=== PATIENT | male | born 1935 | race Caucasian/White ===

== ENCOUNTER 2022-05-07 06:59 | Inpatient (IN) | payer OTHER ==
[2022-05-05 10:40] VITALS: BP 105/59
[2022-05-05 14:11] LABS: BASOPHILS % (AUTO) 0.6 % (0.0-5.0); EOSINOPHILS % (AUTO) 1.3 % (0.0-8.0); HEMATOCRIT 41.6 % (42-54); LYMPHOCYTES % (AUTO) 26.7 % (21.0-51.0); MEAN CORPUSCULAR HEMOGLOBIN 30.6 pg (27.0-33.0); MEAN CORPUSCULAR HGB CONC 33.7 g/dL (32.0-36.0); MEAN CORPUSCULAR VOLUME 90.8 fL (79-99); MONOCYTES % (AUTO) 6.9 % (3.0-13.0); NEUTROPHILS % (AUTO) 64.3 % (40.0-77.0); PLATELET COUNT (AUTO) 201 K/uL (130-400); RED BLOOD CELL COUNT(AUTO) 4.58 MIL/uL (4.50-6.20); WHITE BLOOD COUNT (AUTO) 8.3 K/uL (4.8-10.8)
[2022-05-05 14:13] LABS: APPEARANCE,URINE CLEAR (CLEAR); BILIRUBIN,URINE NEGATIVE (NEGATIVE); COLOR,URINE YELLOW (YELLOW); GLUCOSE, URINE (UA) NEGATIVE (NEGATIVE); KETONES,URINE NEGATIVE (NEGATIVE); LEUKOCYTE ESTERASE ,URINE NEGATIVE (NEGATIVE); NITRATE,URINE NEGATIVE (NEGATIVE); OCCULT BLOOD,URINE NEGATIVE (NEGATIVE); PH,URINE 5.5 (5.0-8.0); PROTEIN,URINE NEGATIVE (NEGATIVE); UROBILINOGEN,URINE 0.2 mg/dL (0.2-1.0)
[2022-05-05 14:20] LABS: POTASSIUM 3.7 mmol/L (3.5-5.1)
[2022-05-05 14:23] LABS: INR 0.96 (0.85-1.15); PROTHROMBIN TIME 10.5 SEC (9.6-11.6)
[2022-05-05 14:24] LABS: PARTIAL THROMBOPLASTIN TIME 24.2 SEC (26.3-35.5)
[~2022-05-07] VITALS: Ht 193 cm; Wt 103.1 kg
[2022-05-07] VITALS (16 sets, daily range): BP systolic 121–151; BP diastolic 71–88
[~2022-05-07 06:59] MED LIST: 0.9% NACL 500ML IV.SOLN 500 ML IV SCH; ASPI-1443 PO; ATOR40TA71 PO; EZET10TA13 PO; GABA300C PO; ISOS30TA92 PO; LORA10TA7 PO; METO-408 PO; MULT-1367 PO
[2022-05-07] MEDS ORDERED: 0.9%NACL 1000ML 1,000 ML IV ONE (07:31)
[2022-05-07] MEDS ORDERED: IOHEXOL 350 MG/ML 100ML INFUS..BTL IV ONE (07:41)
[2022-05-07] MEDS ORDERED: NITROGLYCERIN 50MG VIAL ONE (07:41)
[2022-05-07] MEDS ORDERED: IOHEXOL-350 50ML VIAL IV ONE (07:41)
[2022-05-07] MEDS ORDERED: HEPARIN 10,000 UNIT/10ML (1,000 UNIT/ML) VIAL ONE (07:41)
[2022-05-07] MEDS ORDERED: MIDAZOLAM HCL 1 MG/ML 2ML VIAL ONE (07:42)
[2022-05-07] MEDS ORDERED: FENTANYL CITRATE PF 50 MCG/1 ML 2ML VIAL ONE (07:42)
[2022-05-07] MEDS ORDERED: LIDOCAINE HCL 400MG/20ML VIAL ONE ×2 (07:43→07:52)
[2022-05-07] MEDS ORDERED: DEXTROSE 50%-WATER 50 ML DISP.SYRIN IV PRN (10:00)
[2022-05-07] MEDS ORDERED: GLUCAGON 1MG KIT 1 MG ML IM PRN (10:00)
[2022-05-07] MEDS ORDERED: EZETIMIBE 10 MG TAB PO SCH (10:30)
[2022-05-07] MEDS ORDERED: ISOSORBIDE MONO 30MG SR TAB PO SCH (10:30)
[2022-05-07] MEDS ORDERED: MAG/ALUM/SIMETH 30 ML UDCUP PO PRN (11:00)
[2022-05-07] MEDS ORDERED: ACETAMINOPHEN 325 MG TAB PO PRN ×2 (11:00)
[2022-05-07] MEDS ORDERED: LACTULOSE 20 GM/30 ML UDCUP PO PRN (11:00)
[2022-05-07] MEDS ORDERED: ONDANSETRON 4MG INJ IV PRN (11:00)
[2022-05-07] MEDS ORDERED: GUAIFENESIN-DM 200/20 MG 10 ML PO PRN (11:00)
[2022-05-07] MEDS ORDERED: DiphenhydrAMINE HCL 50 MG/ML VIAL IV PRN (11:00)
[2022-05-07] MEDS ORDERED: NITROGLYCERIN 0.4 MG SL TAB SL PRN (11:00)
[2022-05-07] MEDS: METOPROLOL SUCCINATE 25 MG TAB.SR.24H PO SCH ×2 (12:04→12:09)
[2022-05-07] MEDS ORDERED: ATORVASTATIN 40 MG TABLET PO SCH (21:00)
[2022-05-07] MEDS ORDERED: FAMOTIDINE 20MG TAB PO SCH (21:00)
[2022-05-08] VITALS (47 sets, daily range): BP systolic 71–172; BP diastolic 39–107
[2022-05-08 04:19] LABS: HEMATOCRIT 38.3 % (42-54); MEAN CORPUSCULAR HGB CONC 34.2 g/dL (32.0-36.0); MEAN CORPUSCULAR VOLUME 90.8 fL (79-99); RED BLOOD CELL COUNT(AUTO) 4.22 MIL/uL (4.50-6.20); WHITE BLOOD COUNT (AUTO) 8.9 K/uL (4.8-10.8)
[2022-05-08 04:25] LABS: POTASSIUM 3.7 mmol/L (3.5-5.1)
[2022-05-08 04:29] LABS: ALBUMIN 3.2 g/dL (3.5-5.0); TOTAL PROTEIN, SERUM 6.7 g/dL (6.0-8.3)
[2022-05-08 04:31] LABS: INR 0.99 (0.85-1.15); PROTHROMBIN TIME 10.8 SEC (9.6-11.6)
[2022-05-08 04:32] LABS: PARTIAL THROMBOPLASTIN TIME 23.4 SEC (26.3-35.5)
[2022-05-08 04:41] LABS: HEMOGLOBIN A1C 5.8 % (4.0-6.0)
[2022-05-08 04:45] LABS: ABG BASE EXCESS 1.3 mmol/L (-2.0-3.0); ABG HCO3 25.7 mmol/L (21.0-28.0); ABG OXYGEN SATURATION 95.1 % (95.0-99.0); ABG PCO2 40 mmHg (35-48)
[2022-05-08] MEDS ORDERED: NOREPINEPHRINE BITARTRATE 8 MG in 0.9% NACL 250ML 250 ML IV PRN (06:30)
[2022-05-08] MEDS ORDERED: AMINOCAPROIC ACID 5,000MG VIAL 15,000 MG in 0.9% NACL 500ML IV.SOLN 420 ML IV PRN (06:30)
[2022-05-08] MEDS ORDERED: EPINEPHRINE PF 1MG (1:1,000) 10 MG in 0.9% NACL 250ML 240 ML IV PRN ×2 (06:30→13:00)
[2022-05-08] MEDS ORDERED: CEFAZOLIN SODIUM 1 GM VIAL ONE (06:41)
[2022-05-08] MEDS ORDERED: PAPAVERINE HCL 30 MG/ML 2ML VIAL ONE (06:42)
[2022-05-08] MEDS: METOPROLOL SUCCINATE 25 MG TAB.SR.24H PO SCH (06:49)
[2022-05-08] MEDS ORDERED: 0.9%NACL 1000ML 1,000 ML IV ONE (07:09)
[2022-05-08] MEDS: CEFAZOLIN SODIUM 1 GM VIAL IVP SCH ×2 (07:30→08:30)
[2022-05-08] MEDS ORDERED: NITROGLYCERIN 50MG/D5W 250ML 1 BOT ONE (07:56)
[2022-05-08] MEDS ORDERED: PROPOFOL 10 MG/ML 20ML VIAL IV ONE (08:02)
[2022-05-08] MEDS ORDERED: SODIUM BICARB 50MEQ 50ML VIAL 150 ML ONE ×2 (08:02→12:30)
[2022-05-08] MEDS ORDERED: EPINEPHRINE PF 1MG (1:1,000) 1 MG/ML AMP ONE (08:02)
[2022-05-08] MEDS ORDERED: NOREPINEPHRINE BITARTRATE 1 MG/1 ML ML IV ONE (08:02)
[2022-05-08] MEDS ORDERED: PROTAMINE SULFATE 10 MG/ML 25ML VIAL IV ONE (08:02)
[2022-05-08] MEDS ORDERED: AMINOCAPROIC ACID 5,000MG VIAL ONE (08:02)
[2022-05-08] MEDS ORDERED: LIDOCAINE PF 100MG/5ML (2%) SYRINGE 5ML ONE (08:02)
[2022-05-08] MEDS ORDERED: ESMOLOL HCL 10 MG/ML 10 ML VIAL ONE ×2 (08:02→13:23)
[2022-05-08] MEDS ORDERED: MIDAZOLAM HCL 1 MG/ML 2ML VIAL ONE (08:02)
[2022-05-08] MEDS ORDERED: HEPARIN 10,000 UNIT/10ML (1,000 UNIT/ML) VIAL ONE (08:02)
[2022-05-08] MEDS ORDERED: FENTANYL CITRATE PF 50 MCG/1 ML 20ML VIAL IJ ONE (08:02)
[2022-05-08] MEDS ORDERED: ROCURONIUM 10MG/1ML SYR 10 MG/ML ML ONE ×2 (08:03→09:57)
[2022-05-08] MEDS ORDERED: VASOPRESSIN 20 UNITS/ML 1ML VIAL ONE (08:39)
[2022-05-08] MEDS ORDERED: AMIODARONE 150MG VIAL ONE (08:40)
[2022-05-08 08:53] LABS: ABG BASE EXCESS -2.2 mmol/L (-2.0-3.0); ABG HCO3 22.1 mmol/L (21.0-28.0); ABG OXYGEN SATURATION 99.5 % (95.0-99.0); ABG PCO2 37 mmHg (35-48)
[2022-05-08] MEDS ORDERED: ASPIRIN 81 MG EC TAB PO SCH (09:00)
[2022-05-08] MEDS ORDERED: LORATADINE 10 MG TABLET PO SCH (09:00)
[2022-05-08] MEDS ORDERED: SODIUM BICARB 50MEQ 50ML VIAL 200 ML ONE (09:55)
[2022-05-08 10:15] LABS: ABG BASE EXCESS 0.7 mmol/L (-2.0-3.0); ABG HCO3 24.8 mmol/L (21.0-28.0); ABG OXYGEN SATURATION 99.5 % (95.0-99.0); ABG PCO2 38 mmHg (35-48)
[2022-05-08 10:45] LABS: ABG BASE EXCESS 3.7 mmol/L (-2.0-3.0); ABG HCO3 26.9 mmol/L (21.0-28.0); ABG OXYGEN SATURATION 99.5 % (95.0-99.0); ABG PCO2 36 mmHg (35-48)
[2022-05-08 11:05] LABS: ABG BASE EXCESS 3.3 mmol/L (-2.0-3.0); ABG HCO3 26.2 mmol/L (21.0-28.0); ABG OXYGEN SATURATION 99.6 % (95.0-99.0); ABG PCO2 34 mmHg (35-48)
[2022-05-08 11:21] LABS: ABG BASE EXCESS 0.9 mmol/L (-2.0-3.0); ABG HCO3 23.8 mmol/L (21.0-28.0); ABG OXYGEN SATURATION 99.4 % (95.0-99.0); ABG PCO2 33 mmHg (35-48)
[2022-05-08] MEDS ORDERED: ALBUMIN (HUMAN) 5% 250 ML IV ONE ×3 (11:24→12:06)
[2022-05-08 12:04] LABS: ABG BASE EXCESS 0.4 mmol/L (-2.0-3.0); ABG HCO3 23.7 mmol/L (21.0-28.0); ABG OXYGEN SATURATION 99.4 % (95.0-99.0); ABG PCO2 33 mmHg (35-48)
[2022-05-08] MEDS ORDERED: POTASSIUM CHLORIDE 20MEQ/100ML 100 ML IV ONE (12:07)
[2022-05-08 12:35] LABS: ABG BASE EXCESS 2.4 mmol/L (-2.0-3.0); ABG HCO3 25.8 mmol/L (21.0-28.0); ABG OXYGEN SATURATION 99.4 % (95.0-99.0); ABG PCO2 35 mmHg (35-48)
[2022-05-08] MEDS ORDERED: POTASSIUM CHLORIDE 20MEQ/100ML 200 ML IV ONE (12:35)
[2022-05-08] MEDS ORDERED: ONDANSETRON 4MG INJ IV PRN (13:00)
[2022-05-08] MEDS ORDERED: INSULIN REGULAR, HUMAN 3ML 100 UNIT in 0.9%NACL 100ML 99 ML IV SCH ×2 (13:00)
[2022-05-08] MEDS ORDERED: GLUCAGON 1MG KIT 1 MG ML IM PRN (13:00)
[2022-05-08] MEDS ORDERED: NITROGLYCERIN 50MG/D5W 250ML 250 BOT IV SCH (13:00)
[2022-05-08] MEDS ORDERED: ALBUMIN (HUMAN) 5% 250 ML IV PRN (13:00)
[2022-05-08] MEDS ORDERED: ACETAMINOPHEN 650 MG SUPPOSITORY RC PRN (13:00)
[2022-05-08] MEDS ORDERED: POTASSIUM PHOS 15 mMOL+NS250ML 250 ML IV PRN (13:00)
[2022-05-08] MEDS ORDERED: MORPHINE 2 MG SYG IV PRN (13:00)
[2022-05-08] MEDS ORDERED: NOREPINEPHRIN 4MG/NS 250ML 250 ML IV PRN (13:00)
[2022-05-08] MEDS ORDERED: 0.9% NACL 500ML IV.SOLN 500 ML IV SCH (13:00)
[2022-05-08] MEDS ORDERED: PROPOFOL 1000 MG/100 ML 100 ML IV PRN (13:00)
[2022-05-08] MEDS ORDERED: DEXTROSE 50%-WATER 50 ML DISP.SYRIN IV PRN (13:00)
[2022-05-08] MEDS ORDERED: 0.9%NACL 1000ML 1,000 ML IV SCH (13:00)
[2022-05-08] MEDS ORDERED: 0.9%NACL 10ML VIAL IVP PRN (13:00)
[2022-05-08] MEDS ORDERED: AMINOCAPROIC ACID 5,000MG VIAL 15,000 MG in 0.9% NACL 250ML 250 ML IV SCH (13:00)
[2022-05-08] MEDS ORDERED: TRAMADOL HCL 50 MG TABLET PO PRN (13:00)
[2022-05-08 13:01] LABS: ABG BASE EXCESS 2.3 mmol/L (-2.0-3.0); ABG HCO3 26.1 mmol/L (21.0-28.0); ABG OXYGEN SATURATION 99.1 % (95.0-99.0); ABG PCO2 37 mmHg (35-48)
[2022-05-08] MEDS ORDERED: ETOMIDATE 20MG VIAL ONE (13:23)
[2022-05-08 13:54] LABS: ABG BASE EXCESS -1.5 mmol/L (-2.0-3.0); ABG HCO3 22.7 mmol/L (21.0-28.0); ABG OXYGEN SATURATION 97.2 % (95.0-99.0); ABG PCO2 37 mmHg (35-48)
[2022-05-08] MEDS ORDERED: ASPIRIN 81MG CHEW TAB NG ONE (14:00)
[2022-05-08 14:04] LABS: HEMATOCRIT 28.9 % (42-54); MEAN CORPUSCULAR HEMOGLOBIN 31.4 pg (27.0-33.0); MEAN CORPUSCULAR HGB CONC 34.6 g/dL (32.0-36.0); MEAN CORPUSCULAR VOLUME 90.9 fL (79-99); RED BLOOD CELL COUNT(AUTO) 3.18 MIL/uL (4.50-6.20); RED CELL DISTRIBUTION WIDTH 12.7 % (11.0-15.5); WHITE BLOOD COUNT (AUTO) 28.8 K/uL (4.8-10.8)
[2022-05-08 14:15] LABS: CREATININE 1.1 mg/dL (0.5-1.5); MAGNESIUM 1.3 mg/dL (1.80-2.40); PHOSPHORUS 3.8 mg/dL (2.5-4.9); POTASSIUM 3.3 mmol/L (3.5-5.1)
[2022-05-08 14:16] LABS: INR 1.32 (0.85-1.15); PROTHROMBIN TIME 14.2 SEC (9.6-11.6)
[2022-05-08 14:17] LABS: PARTIAL THROMBOPLASTIN TIME 25.1 SEC (26.3-35.5)
[2022-05-08 15:00] LABS: ABG BASE EXCESS -3.1 mmol/L (-2.0-3.0); ABG HCO3 21.3 mmol/L (21.0-28.0); ABG PCO2 36 mmHg (35-48)
[2022-05-08] MEDS: TRAMADOL HCL 50 MG TABLET PO PRN (15:11)
[2022-05-08] MEDS: SODIUM BICARB 50MEQ 50ML VIAL IV PRN ×4 (15:11→18:10)
[2022-05-08] MEDS: CALCIUM GLUC 1GM 1 GM in 0.9%NACL 50ML 50 ML IV PRN ×7 (15:13→23:51)
[2022-05-08] MEDS: POTASSIUM CHLORIDE 20MEQ/100ML 100 ML IV PRN ×7 (15:13→21:30)
[2022-05-08] MEDS: MAGNESIUM 2GM PREMIX 50ML 50 ML IV PRN ×2 (15:29→17:37)
[2022-05-08 16:10] LABS: ABG HCO3 20.9 mmol/L (21.0-28.0); ABG PCO2 37 mmHg (35-48)
[2022-05-08 16:51] LABS: ABG BASE EXCESS 0.5 mmol/L (-2.0-3.0); ABG HCO3 26.3 mmol/L (21.0-28.0); ABG OXYGEN SATURATION 93.9 % (95.0-99.0); ABG PCO2 48 mmHg (35-48)
[2022-05-08] MEDS ORDERED: FUROSEMIDE 20MG VIAL ONE (17:16)
[2022-05-08] MEDS: CEFAZOLIN SODIUM 1 GM VIAL IV SCH (17:36)
[2022-05-08 17:45] LABS: ABG HCO3 22.4 mmol/L (21.0-28.0); ABG OXYGEN SATURATION 94.6 % (95.0-99.0); ABG PCO2 41 mmHg (35-48)
[2022-05-08 19:05] LABS: ABG OXYGEN SATURATION 95.3 % (95.0-99.0); ABG PCO2 37 mmHg (35-48)
[2022-05-08 19:08] LABS: ABG BASE EXCESS 1.7 mmol/L (-2.0-3.0); ABG HCO3 25.8 mmol/L (21.0-28.0); ABG OXYGEN SATURATION 95.5 % (95.0-99.0); ABG PCO2 39 mmHg (35-48)
[2022-05-08 20:24] LABS: ABG BASE EXCESS 3.6 mmol/L (-2.0-3.0); ABG HCO3 28.5 mmol/L (21.0-28.0); ABG OXYGEN SATURATION 96.6 % (95.0-99.0); ABG PCO2 45 mmHg (35-48)
[2022-05-08] MEDS: FAMOTIDINE 20MG VIAL IV SCH (20:39)
[2022-05-08 21:20] LABS: ABG BASE EXCESS 3.5 mmol/L (-2.0-3.0); ABG HCO3 27.7 mmol/L (21.0-28.0); ABG OXYGEN SATURATION 97.3 % (95.0-99.0); ABG PCO2 41 mmHg (35-48)
[2022-05-08] MEDS ORDERED: 0.9% NACL 250ML 250 ML ONE (21:23)
[2022-05-08] MEDS: MORPHINE 4 MG SYG IV PRN (22:14)
[2022-05-08 22:42] LABS: ABG OXYGEN SATURATION 96.9 % (95.0-99.0); ABG PCO2 44 mmHg (35-48)
[2022-05-08] MEDS: ACETAMINOPHEN 325 MG TAB PO PRN (23:04)
[2022-05-08 23:36] LABS: ABG BASE EXCESS 3.6 mmol/L (-2.0-3.0); ABG OXYGEN SATURATION 96.9 % (95.0-99.0); ABG PCO2 36 mmHg (35-48)
[2022-05-09] VITALS (38 sets, daily range): BP systolic 97–154; BP diastolic 4–82
[2022-05-09] MEDS: TRAMADOL HCL 50 MG TABLET PO PRN ×2 (00:14→09:20)
[2022-05-09] MEDS: POTASSIUM CHLORIDE 20MEQ/100ML 100 ML IV PRN ×2 (00:23→05:31)
[2022-05-09 00:27] LABS: ABG BASE EXCESS 2.4 mmol/L (-2.0-3.0); ABG HCO3 27.5 mmol/L (21.0-28.0); ABG OXYGEN SATURATION 92.9 % (95.0-99.0); ABG PCO2 45 mmHg (35-48)
[2022-05-09] MEDS: MORPHINE 4 MG SYG IV PRN (00:28)
[2022-05-09] MEDS: ACETAMINOPHEN 325 MG TAB PO PRN (00:29)
[2022-05-09] MEDS ORDERED: HYDROCODONE/ACETAMINOPHEN 5/325 MG TAB PO PRN (01:00)
[2022-05-09] MEDS ORDERED: MORPHINE 2 MG SYG IVP ONE (01:00)
[2022-05-09] MEDS ORDERED: ALBUMIN (HUMAN) 5% 250 ML IV SCH (01:30)
[2022-05-09 01:32] LABS: ABG BASE EXCESS 4.2 mmol/L (-2.0-3.0); ABG HCO3 30.5 mmol/L (21.0-28.0); ABG OXYGEN SATURATION 93.8 % (95.0-99.0); ABG PCO2 55 mmHg (35-48)
[2022-05-09] MEDS: CEFAZOLIN SODIUM 1 GM VIAL IV SCH ×2 (01:39→09:23)
[2022-05-09] MEDS ORDERED: ALBUMIN (HUMAN) 5% 250 ML IV ONE (02:00)
[2022-05-09 02:10] LABS: ABG BASE EXCESS 2.2 mmol/L (-2.0-3.0); ABG HCO3 27.3 mmol/L (21.0-28.0); ABG OXYGEN SATURATION 93.8 % (95.0-99.0); ABG PCO2 45 mmHg (35-48)
[2022-05-09 03:09] LABS: ABG BASE EXCESS 2.1 mmol/L (-2.0-3.0); ABG HCO3 27.4 mmol/L (21.0-28.0); ABG OXYGEN SATURATION 94.1 % (95.0-99.0); ABG PCO2 46 mmHg (35-48)
[2022-05-09 03:52] LABS: HEMATOCRIT 26.9 % (42-54); MEAN CORPUSCULAR HEMOGLOBIN 31.3 pg (27.0-33.0); MEAN CORPUSCULAR HGB CONC 33.8 g/dL (32.0-36.0); MEAN CORPUSCULAR VOLUME 92.4 fL (79-99); RED BLOOD CELL COUNT(AUTO) 2.91 MIL/uL (4.50-6.20); RED CELL DISTRIBUTION WIDTH 13.7 % (11.0-15.5); WHITE BLOOD COUNT (AUTO) 16.9 K/uL (4.8-10.8)
[2022-05-09 04:03] LABS: ABG BASE EXCESS 2.3 mmol/L (-2.0-3.0); ABG HCO3 27.4 mmol/L (21.0-28.0); ABG OXYGEN SATURATION 93.4 % (95.0-99.0); ABG PCO2 45 mmHg (35-48)
[2022-05-09 04:04] LABS: INR 1.17 (0.85-1.15); PROTHROMBIN TIME 12.6 SEC (9.6-11.6)
[2022-05-09 04:05] LABS: CREATININE 1.3 mg/dL (0.5-1.5); MAGNESIUM 1.6 mg/dL (1.80-2.40); POTASSIUM 3.8 mmol/L (3.5-5.1)
[2022-05-09 04:06] LABS: PARTIAL THROMBOPLASTIN TIME 26.5 SEC (26.3-35.5)
[2022-05-09] MEDS: MAGNESIUM 2GM PREMIX 50ML 50 ML IV PRN ×2 (05:30→21:15)
[2022-05-09 06:59] LABS: ABG BASE EXCESS 2.8 mmol/L (-2.0-3.0); ABG HCO3 27.9 mmol/L (21.0-28.0); ABG OXYGEN SATURATION 94.3 % (95.0-99.0); ABG PCO2 45 mmHg (35-48)
[2022-05-09] MEDS ORDERED: NOREPINEPHRIN 8MG/250ML NS PMX 250 ML IV ONE (08:13)
[2022-05-09] MEDS ORDERED: NOREPINEPHRIN 8MG/250ML NS PMX 250 ML IV SCH (08:30)
[2022-05-09] MEDS: FAMOTIDINE 20MG VIAL IV SCH ×2 (09:22→20:19)
[2022-05-09] MEDS: POLYETHYLENE GLYCOL 3350 17 GM POWD.PACK PO SCH (09:23)
[2022-05-09] MEDS: ASPIRIN 81MG CHEW TAB PO SCH (11:21)
[2022-05-09] MEDS: IPRATROPIUM/ALBUTEROL SULFATE 3 ML SOLUTION IH PRN (18:52)
[2022-05-09] MEDS: ATORVASTATIN 40 MG TABLET PO SCH (20:19)
[2022-05-09 20:47] LABS: MAGNESIUM 1.8 mg/dL (1.80-2.40); POTASSIUM 4.2 mmol/L (3.5-5.1)
[2022-05-10] VITALS (43 sets, daily range): BP systolic 92–294; BP diastolic 48–294
[2022-05-10] MEDS: IPRATROPIUM/ALBUTEROL SULFATE 3 ML SOLUTION IH PRN ×2 (01:12→18:31)
[2022-05-10 04:24] LABS: HEMATOCRIT 24.8 % (42-54); MEAN CORPUSCULAR HEMOGLOBIN 30.9 pg (27.0-33.0); MEAN CORPUSCULAR HGB CONC 33.1 g/dL (32.0-36.0); MEAN CORPUSCULAR VOLUME 93.6 fL (79-99); RED BLOOD CELL COUNT(AUTO) 2.65 MIL/uL (4.50-6.20); RED CELL DISTRIBUTION WIDTH 14.2 % (11.0-15.5); WHITE BLOOD COUNT (AUTO) 21.1 K/uL (4.8-10.8)
[2022-05-10] MEDS: POTASSIUM CHLORIDE 20MEQ/100ML 100 ML IV PRN (05:06)
[2022-05-10] MEDS: TRAMADOL HCL 50 MG TABLET PO PRN (05:19)
[2022-05-10] MEDS: INSULIN HUMULIN R 100 UNIT/ML 3ML SQ SCH ×4 (07:30→21:00)
[2022-05-10] MEDS: POLYETHYLENE GLYCOL 3350 17 GM POWD.PACK PO SCH (08:30)
[2022-05-10] MEDS: ASPIRIN 81MG CHEW TAB PO SCH (08:30)
[2022-05-10] MEDS: FAMOTIDINE 20MG TAB PO SCH ×2 (08:30→20:04)
[2022-05-10] MEDS ORDERED: FUROSEMIDE 20 MG TABLET PO SCH (09:30)
[2022-05-10] MEDS: METOPROLOL TARTRATE 25 MG TAB PO SCH ×2 (10:36→20:04)
[2022-05-10] MEDS: ATORVASTATIN 40 MG TABLET PO SCH (20:04)
[2022-05-10] MEDS: FUROSEMIDE 20 MG TABLET PO SCH (20:05)
[2022-05-10] MEDS ORDERED: AMIODARONE 150MG VIAL 150 MG in DEXTROSE 5%-WATER 100 ML IV SCH (20:30)
[2022-05-10] MEDS ORDERED: AMIODARONE 900MG VIAL 360 MG in DEXTROSE 5%-WATER 200 ML IV SCH (20:30)
[2022-05-11] MEDS ORDERED: AMIODARONE 900MG VIAL 540 MG in DEXTROSE 5%-WATER 300 ML IV SCH (02:30)
[2022-05-11] MEDS: IPRATROPIUM/ALBUTEROL SULFATE 3 ML SOLUTION IH PRN ×2 (03:32→06:24)
[2022-05-11 03:42] LABS: BASOPHILS % (AUTO) 0.3 % (0.0-5.0); EOSINOPHILS % (AUTO) 0.3 % (0.0-8.0); HEMATOCRIT 22.6 % (42-54); LYMPHOCYTES % (AUTO) 9.6 % (21.0-51.0); MEAN CORPUSCULAR HEMOGLOBIN 31.9 pg (27.0-33.0); MEAN CORPUSCULAR HGB CONC 33.6 g/dL (32.0-36.0); MONOCYTES % (AUTO) 6.7 % (3.0-13.0); NEUTROPHILS % (AUTO) 82.4 % (40.0-77.0); PLATELET COUNT (AUTO) 110 K/uL (130-400); RED BLOOD CELL COUNT(AUTO) 2.38 MIL/uL (4.50-6.20); RED CELL DISTRIBUTION WIDTH 13.8 % (11.0-15.5); WHITE BLOOD COUNT (AUTO) 15.3 K/uL (4.8-10.8)
[2022-05-11 03:56] LABS: CREATININE 1.1 mg/dL (0.5-1.5)
[2022-05-11 03:57] VITALS: BP 129/75
[2022-05-11] MEDS: INSULIN HUMULIN R 100 UNIT/ML 3ML SQ SCH ×4 (05:51→21:00)
[2022-05-11] MEDS: FAMOTIDINE 20MG TAB PO SCH ×2 (08:34→20:16)
[2022-05-11] MEDS: ASPIRIN 81MG CHEW TAB PO SCH (08:34)
[2022-05-11] MEDS: POLYETHYLENE GLYCOL 3350 17 GM POWD.PACK PO SCH (08:34)
[2022-05-11] MEDS: FUROSEMIDE 20 MG TABLET PO SCH (08:35)
[2022-05-11] MEDS: METOPROLOL TARTRATE 25 MG TAB PO SCH ×2 (08:35→20:17)
[2022-05-11 08:36] VITALS: BP 125/70
[2022-05-11] MEDS: ENOXAPARIN SODIUM 30 MG/0.3 ML SQ SCH (08:36)
[2022-05-11] MEDS ORDERED: LIDOCAINE HCL-MPF 1% 2ML VIAL IV PRN (10:00)
[2022-05-11] MEDS ORDERED: POTASSIUM CHLORIDE 10% ELIXIR 20 MEQ/15 ML UDCUP PO PRN (10:00)
[2022-05-11 12:04] VITALS: BP 114/71
[2022-05-11] MEDS: FUROSEMIDE 20MG VIAL IV SCH ×2 (12:25→23:42)
[2022-05-11 13:27] LABS: RETICULOCYTE % (AUTO) 1.91 % (0.42-2.23)
[2022-05-11 14:08] LABS: % IRON SATURATION 12.2 % (30-44)
[2022-05-11] MEDS: BISACODYL 5 MG TABLET.DR PO SCH ×2 (14:13→20:17)
[2022-05-11 14:30] LABS: THYROID STIMULATING HORMONE 0.51 uIU/mL (0.36-3.74)
[2022-05-11] MEDS ORDERED: FUROSEMIDE 40MG VIAL IV ONE (19:00)
[2022-05-11 19:32] VITALS: BP 148/90
[2022-05-11] MEDS: AMIODARONE 200 MG TABLET PO SCH (20:16)
[2022-05-11] MEDS: ATORVASTATIN 40 MG TABLET PO SCH (20:17)
[2022-05-12] VITALS (7 sets, daily range): BP systolic 113–143; BP diastolic 69–91
[2022-05-12 03:33] LABS: HEMATOCRIT 23.9 % (42-54); MEAN CORPUSCULAR HEMOGLOBIN 31.3 pg (27.0-33.0); MEAN CORPUSCULAR HGB CONC 33.9 g/dL (32.0-36.0); MEAN CORPUSCULAR VOLUME 92.3 fL (79-99); NUCLEATED RED BLOOD CELLS 0.1 % (0.0-0.19); RED BLOOD CELL COUNT(AUTO) 2.59 MIL/uL (4.50-6.20); RED CELL DISTRIBUTION WIDTH 13.5 % (11.0-15.5); WHITE BLOOD COUNT (AUTO) 13.5 K/uL (4.8-10.8)
[2022-05-12 03:44] LABS: POTASSIUM 3.1 mmol/L (3.5-5.1)
[2022-05-12] MEDS: KCL 20 MEQ ERTAB PO PRN ×3 (05:06→10:10)
[2022-05-12] MEDS: INSULIN HUMULIN R 100 UNIT/ML 3ML SQ SCH ×4 (06:14→20:08)
[2022-05-12] MEDS: AMIODARONE 200 MG TABLET PO SCH ×2 (08:29→20:39)
[2022-05-12] MEDS: FAMOTIDINE 20MG TAB PO SCH ×2 (08:29→20:38)
[2022-05-12] MEDS ORDERED: BISACODYL 5 MG TABLET.DR PO PRN (08:30)
[2022-05-12] MEDS: ENOXAPARIN SODIUM 30 MG/0.3 ML SQ SCH (08:30)
[2022-05-12] MEDS: ASPIRIN 81MG CHEW TAB PO SCH (08:30)
[2022-05-12] MEDS: POLYETHYLENE GLYCOL 3350 17 GM POWD.PACK PO SCH (08:30)
[2022-05-12] MEDS: METOPROLOL TARTRATE 25 MG TAB PO SCH ×2 (09:08→20:38)
[2022-05-12] MEDS: MAGNESIUM 2GM PREMIX 50ML 50 ML IV PRN (09:09)
[2022-05-12] MEDS ORDERED: IPRATROPIUM/ALBUTEROL SULFATE 3 ML SOLUTION IH SCH (09:30)
[2022-05-12] MEDS ORDERED: COMPOUND IV MISC 1 EACH IVSOLN MISC PRN (09:30)
[2022-05-12] MEDS: BUDESONIDE 0.5 MG/2 ML INH IH SCH ×2 (09:31→19:26)
[2022-05-12] MEDS: RIVAROXABAN 2.5 MG TABLET PO SCH (10:11)
[2022-05-12] MEDS: IRON SUCROSE COMPLEX 300 MG in 0.9%NACL 50ML 50 ML IV SCH (10:11)
[2022-05-12] MEDS ORDERED: SOLU-MEDROL 125MG VIAL IVP SCH (11:00)
[2022-05-12] MEDS ORDERED: EPOETIN ALFA-EPBX (NON-ESRD) 10,000 UNIT/ML VIAL SQ SCH (12:00)
[2022-05-12] MEDS: FUROSEMIDE 20MG VIAL IV SCH ×2 (12:09→23:30)
[2022-05-12] MEDS: IPRATROPIUM 0.5 MG/2.5 ML INH IH SCH ×3 (13:29→22:21)
[2022-05-12] MEDS: ATORVASTATIN 40 MG TABLET PO SCH (20:38)
[2022-05-13] MEDS: FUROSEMIDE 20MG VIAL IV SCH ×3 (00:54→23:15)
[2022-05-13] MEDS: BUDESONIDE 0.5 MG/2 ML INH IH SCH ×2 (06:44→18:27)
[2022-05-13] MEDS: IPRATROPIUM 0.5 MG/2.5 ML INH IH SCH ×5 (06:44→22:02)
[2022-05-13] MEDS: INSULIN HUMULIN R 100 UNIT/ML 3ML SQ SCH ×4 (06:47→21:00)
[2022-05-13 08:00] VITALS: BP 127/72
[2022-05-13 08:01] LABS: BASOPHILS % (AUTO) 0.2 % (0.0-5.0); HEMATOCRIT 25.6 % (42-54); LYMPHOCYTES % (AUTO) 7.1 % (21.0-51.0); MEAN CORPUSCULAR HEMOGLOBIN 31.4 pg (27.0-33.0); MEAN CORPUSCULAR VOLUME 92.4 fL (79-99); MONOCYTES % (AUTO) 5.1 % (3.0-13.0); NEUTROPHILS % (AUTO) 86.1 % (40.0-77.0); NUCLEATED RED BLOOD CELLS 0.6 % (0.0-0.19); PLATELET COUNT (AUTO) 200 K/uL (130-400); RED BLOOD CELL COUNT(AUTO) 2.77 MIL/uL (4.50-6.20); RED CELL DISTRIBUTION WIDTH 13.5 % (11.0-15.5); WHITE BLOOD COUNT (AUTO) 17.8 K/uL (4.8-10.8)
[2022-05-13 08:20] LABS: MAGNESIUM 2.2 mg/dL (1.80-2.40); PHOSPHORUS 2.5 mg/dL (2.5-4.9); POTASSIUM 3.2 mmol/L (3.5-5.1)
[2022-05-13 08:29] LABS: B-TYPE NATRIURETIC PEPTIDE 315 pg/mL (0-100)
[2022-05-13] MEDS: POLYETHYLENE GLYCOL 3350 17 GM POWD.PACK PO SCH (08:40)
[2022-05-13] MEDS: RIVAROXABAN 2.5 MG TABLET PO SCH (08:41)
[2022-05-13] MEDS: AMIODARONE 200 MG TABLET PO SCH ×2 (08:41→21:51)
[2022-05-13] MEDS: ASPIRIN 81MG CHEW TAB PO SCH (08:41)
[2022-05-13] MEDS: METOPROLOL TARTRATE 25 MG TAB PO SCH ×2 (08:41→21:51)
[2022-05-13] MEDS: FAMOTIDINE 20MG TAB PO SCH ×2 (08:42→21:51)
[2022-05-13] MEDS: IRON SUCROSE COMPLEX 300 MG in 0.9%NACL 50ML 50 ML IV SCH (09:25)
[2022-05-13] MEDS: KCL 20 MEQ ERTAB PO PRN ×3 (11:32→17:13)
[2022-05-13 12:00] VITALS: BP 118/73
[2022-05-13 19:00] VITALS: BP 126/74
[2022-05-13] MEDS: ATORVASTATIN 40 MG TABLET PO SCH (21:50)
[2022-05-13] MEDS: SOLU-MEDROL 40MG VIAL IVP SCH (21:51)
[2022-05-14] VITALS (7 sets, daily range): BP systolic 129–150; BP diastolic 68–87
[2022-05-14] MEDS: IPRATROPIUM 0.5 MG/2.5 ML INH IH SCH ×6 (02:33→22:33)
[2022-05-14 04:02] LABS: BASOPHILS % (AUTO) 0.3 % (0.0-5.0); HEMATOCRIT 25.1 % (42-54); LYMPHOCYTES % (AUTO) 8.2 % (21.0-51.0); MEAN CORPUSCULAR HGB CONC 33.1 g/dL (32.0-36.0); MEAN CORPUSCULAR VOLUME 93.7 fL (79-99); MONOCYTES % (AUTO) 5.3 % (3.0-13.0); NEUTROPHILS % (AUTO) 81.4 % (40.0-77.0); NUCLEATED RED BLOOD CELLS 2.2 % (0.0-0.19); PLATELET COUNT (AUTO) 255 K/uL (130-400); RED BLOOD CELL COUNT(AUTO) 2.68 MIL/uL (4.50-6.20); RED CELL DISTRIBUTION WIDTH 14.1 % (11.0-15.5); WHITE BLOOD COUNT (AUTO) 20.9 K/uL (4.8-10.8)
[2022-05-14 04:13] LABS: CREATININE 1.1 mg/dL (0.5-1.5); POTASSIUM 3.9 mmol/L (3.5-5.1)
[2022-05-14] MEDS: INSULIN HUMULIN R 100 UNIT/ML 3ML SQ SCH ×4 (06:11→20:38)
[2022-05-14] MEDS: BUDESONIDE 0.5 MG/2 ML INH IH SCH ×2 (06:33→18:39)
[2022-05-14] MEDS: METOPROLOL TARTRATE 25 MG TAB PO SCH ×2 (10:07→20:37)
[2022-05-14] MEDS: FAMOTIDINE 20MG TAB PO SCH ×2 (10:07→20:38)
[2022-05-14] MEDS: ASPIRIN 81MG CHEW TAB PO SCH (10:07)
[2022-05-14] MEDS: AMIODARONE 200 MG TABLET PO SCH ×2 (10:07→20:38)
[2022-05-14] MEDS: IRON SUCROSE COMPLEX 300 MG in 0.9%NACL 50ML 50 ML IV SCH (10:07)
[2022-05-14] MEDS: ACETAMINOPHEN 325 MG TAB PO PRN ×2 (10:08→20:39)
[2022-05-14] MEDS: RIVAROXABAN 2.5 MG TABLET PO SCH (10:08)
[2022-05-14] MEDS: POLYETHYLENE GLYCOL 3350 17 GM POWD.PACK PO SCH (10:09)
[2022-05-14] MEDS: SOLU-MEDROL 40MG VIAL IVP SCH ×2 (10:09→20:37)
[2022-05-14] MEDS: FUROSEMIDE 20MG VIAL IV SCH ×2 (11:56→20:36)
[2022-05-14] MEDS: ATORVASTATIN 40 MG TABLET PO SCH (20:37)
[2022-05-15] VITALS (7 sets, daily range): BP systolic 114–157; BP diastolic 68–88
[2022-05-15] MEDS: IPRATROPIUM 0.5 MG/2.5 ML INH IH SCH ×5 (02:19→23:16)
[2022-05-15 03:52] LABS: BASOPHILS % (AUTO) 0.2 % (0.0-5.0); HEMATOCRIT 25.7 % (42-54); LYMPHOCYTES % (AUTO) 8.3 % (21.0-51.0); MEAN CORPUSCULAR HEMOGLOBIN 31.3 pg (27.0-33.0); MEAN CORPUSCULAR HGB CONC 32.7 g/dL (32.0-36.0); MEAN CORPUSCULAR VOLUME 95.9 fL (79-99); MONOCYTES % (AUTO) 6.6 % (3.0-13.0); NEUTROPHILS % (AUTO) 78.9 % (40.0-77.0); PLATELET COUNT (AUTO) 295 K/uL (130-400); RED BLOOD CELL COUNT(AUTO) 2.68 MIL/uL (4.50-6.20); RED CELL DISTRIBUTION WIDTH 14.7 % (11.0-15.5); WHITE BLOOD COUNT (AUTO) 20.8 K/uL (4.8-10.8)
[2022-05-15 03:57] LABS: CREATININE 1.1 mg/dL (0.5-1.5); POTASSIUM 3.3 mmol/L (3.5-5.1)
[2022-05-15] MEDS: BUDESONIDE 0.5 MG/2 ML INH IH SCH ×2 (06:15→18:48)
[2022-05-15] MEDS: INSULIN HUMULIN R 100 UNIT/ML 3ML SQ SCH ×4 (06:53→21:00)
[2022-05-15] MEDS: POLYETHYLENE GLYCOL 3350 17 GM POWD.PACK PO SCH (09:00)
[2022-05-15] MEDS: METOPROLOL TARTRATE 25 MG TAB PO SCH ×2 (09:58→20:38)
[2022-05-15] MEDS: FAMOTIDINE 20MG TAB PO SCH ×2 (09:58→20:38)
[2022-05-15] MEDS: ASPIRIN 81MG CHEW TAB PO SCH (09:59)
[2022-05-15] MEDS: RIVAROXABAN 2.5 MG TABLET PO SCH (09:59)
[2022-05-15] MEDS: AMIODARONE 200 MG TABLET PO SCH ×2 (10:00→20:39)
[2022-05-15] MEDS: FUROSEMIDE 20MG VIAL IV SCH (10:01)
[2022-05-15] MEDS: SOLU-MEDROL 40MG VIAL IVP SCH ×2 (10:01→20:39)
[2022-05-15] MEDS: KCL 20 MEQ ERTAB PO PRN ×2 (17:30→18:40)
[2022-05-15] MEDS: ATORVASTATIN 40 MG TABLET PO SCH (20:38)
[2022-05-16] MEDS ORDERED: FUROSEMIDE 20 MG TABLET PO SCH (09:00)
[2022-05-18] MEDS ORDERED: AMIODARONE 200 MG TABLET PO SCH (09:00)
== END 2022-05-16 00:25 | DRG 233 ==
LOC: DAH 06:59 → DAHIP 07:00 → OBSVTOIN 07:00 → DAH 07:00 → 2DH 11:49 → 2CV 05-08 14:55 → 2BH 05-09 05:05 → 2DH 05-10 14:58
PROVIDERS: ADMIT Internal Medicine; ATTEND Internal Medicine
PROC: B2111ZZ Fluoroscopy of Multiple Coronary Arteries using Low Osmolar Contrast (ICD-10-PCS; principal; 2022-05-07)
PROC: B41F1ZZ Fluoroscopy of Right Lower Extremity Arteries using Low Osmolar Contrast (ICD-10-PCS; 2022-05-07)
PROC: 06BQ4ZZ Excision of Left Saphenous Vein, Percutaneous Endoscopic Approach (ICD-10-PCS; 2022-05-08)
PROC: 0PH000Z Insertion of Rigid Plate Internal Fixation Device into Sternum, Open Approach (ICD-10-PCS; 2022-05-08)
PROC: 30233R1 Transfusion of Nonautologous Platelets into Peripheral Vein, Percutaneous Approach (ICD-10-PCS; 2022-05-08)
PROC: 02100Z9 Bypass Coronary Artery, One Artery from Left Internal Mammary, Open Approach (ICD-10-PCS; 2022-05-08 07:57)
PROC: 021209W Bypass Coronary Artery, Three Arteries from Aorta with Autologous Venous Tissue, Open Approach (ICD-10-PCS; 2022-05-08 07:57)
DX: I25.10 Atherosclerotic heart disease of native coronary artery without angina pectoris (principal); I21.4 Non-ST elevation (NSTEMI) myocardial infarction; J95.1 Acute pulmonary insufficiency following thoracic surgery; D62 Acute posthemorrhagic anemia; D68.59 Other primary thrombophilia; R45.851 Suicidal ideations; I97.190 Other postprocedural cardiac functional disturbances following cardiac surgery; Z20.822 Contact with and (suspected) exposure to COVID-19; E78.00 Pure hypercholesterolemia, unspecified; D72.829 Elevated white blood cell count, unspecified; D50.9 Iron deficiency anemia, unspecified; E11.9 Type 2 diabetes mellitus without complications; E87.70 Fluid overload, unspecified; G62.9 Polyneuropathy, unspecified; I10 Essential (primary) hypertension; I25.5 Ischemic cardiomyopathy; Z96.642 Presence of left artificial hip joint; I48.0 Paroxysmal atrial fibrillation; K59.00 Constipation, unspecified; Z79.82 Long term (current) use of aspirin; I25.2 Old myocardial infarction; Z79.899 Other long term (current) drug therapy; Z85.828 Personal history of other malignant neoplasm of skin; Z87.891 Personal history of nicotine dependence; Z95.1 Presence of aortocoronary bypass graft
CPT/HCPCS: 36415; 36600; 71045; 71250; 80048; 80053; 80061; 81003; 82435; 82607; 82728; 82746; 82803; 82947; 82948; 83036; 83540; 83550; 83605; 83735; 83880; 84100; 84132; 84145; 84295; 84443; 85018; 85025; 85027; 85045; 85347; 85610; 85730; 86850; 86900; 86901; 86923; 87426; 92610; 93005; 93454; 93880; 94002; 94010; 94640; 97039; 99156; 99157; A4606; A7048; C1894; G0378; J0171; J0282; J0610; J0690; J1644; J1650; J1756; J1815; J1940; J2001; J2250; J2270; J2405; J2440; J2704; J2720; J2920; J2930; J3010; J3475; J3480; J3490; J7030; J7040; J7050; J7060; J7120; P9034; P9045; Q9967